=== PATIENT | female | born 1965 | race Caucasian/White ===

== ENCOUNTER 2017-04-12 11:17 | Emergency (ER) | payer OTHER ==
[2017-04-12] MEDS ORDERED: MOTRIN 600 MG PO ONE (11:46)
[2017-04-12] MEDS ORDERED: MOTRIN 600 MG ONE (11:53)
--- NOTE | 2017-04-12 11:57 | ERPHSYRPT ---
- History of Present Illness Time Seen by Provider: 04/12/17 11:54 Source: patient Exam Limitations: no limitations Physician History: 52 y/o female comes to the ER with complaints of left middle finger pain after jamming the finger last night. Pt describes the pain as sharp, intermittent, 0/ 10 at rest and 6/10 with movement and pt has not taken any pain medss. Occurred: yesterday Method of Injury: direct blow Quality: intermittent Severity of Pain-Max: moderate Severity of Pain-Current: none Extremities Pain Location: 3rd finger: left Modifying Factors: Improves With: movement Associated Symptoms: none Allergies/Adverse Reactions: Penicillins Allergy (Verified 04/12/17 12:05) Home Medications: Alprazolam 0.25 mg [xanAX 0.25 MG] 0.25 mg PO BIDPRN PRN 04/12/17 [History ] Metoprolol Succinate 50 mg [Toprol Xl 50 MG] 50 mg PO DAILY 04/12/17 [ History] - Review of Systems Constitutional: No Fever, No Chills Eyes: No Symptoms Ears, Nose, & Throat: No Symptoms Respiratory: No Cough, No Dyspnea Cardiac: No Chest Pain, No Edema, No Syncope Abdominal/Gastrointestinal: No Abdominal Pain, No Nausea, No Vomiting, No Diarrhea Genitourinary Symptoms: No Dysuria Musculoskeletal: Joint Redness, Joint Pain, No Back Pain, No Neck Pain Skin: No Rash Neurological: No Dizziness, No Focal Weakness, No Sensory Changes Psychological: No Symptoms Endocrine: No Symptoms All Other Systems: Reviewed and Negative - Nursing Vital Signs Nursing Vital Signs: Initial Vital Signs Pulse Rate 100 H 04/12/17 11:53 Respiratory Rate 16 04/12/17 11:53 Blood Pressure 130/72 04/12/17 11:53 O2 Sat by Pulse Oximetry 98 04/12/17 11:53 Pain Scale Pain Intensity 1 - Physical Exam General Appearance: alert Eyes, Ears, Nose, Throat Exam: moist mucous membranes Neck Exam: non-tender, supple Cardiovascular/Respiratory Exam: chest non-tender, normal breath sounds, regular rate/rhythm, no respiratory distress Abdominal Exam: non-tender, No guarding Back Exam: normal inspection, No vertebral tenderness Wrist Exam: normal inspection Hand Exam: bone tenderness, limited ROM Neuro/Tendon Exam: normal sensation, normal motor functions Mental Status Exam: alert, oriented x 3, cooperative Skin Exam: normal color, warm, dry SpO2: 98 Oxygen Delivery: Room Air - Course Nursing assessment & vital signs reviewed: Yes Ordered Tests: Medication Summary Discontinued Medications Generic Name Dose Route Start Last Admin Trade Name Coltenq PRN Reason Stop Dose Admin Ibuprofen 600 mg 04/12/17 11:46 04/12/17 11:54 Motrin 600 Mg PO 04/12/17 11:47 600 mg STAT ONE Administration Ibuprofen Confirm 04/12/17 11:53 Motrin 600 Mg Administered 04/12/17 11:54 Dose 600 mg .[employer]TE .[employer] - Progress Progress: unchanged Progress Note: 04/12/17 12:21 The finger x ray shows a nondisplaced fracture of the 3rd phalanx. Pt will have a daniella tape placed and will be given a script for motrin. Pt will F/U with orthopedics. - Departure Time of Disposition: 12:22 Departure Disposition: Home Clinical Impression: Finger fracture Qualifiers: Encounter type: initial encounter Finger: ring finger Fracture type: closed Phalanx: proximal Fracture alignment: nondisplaced Laterality: left Qualified Code(s): S62.645A - Nondisplaced fracture of proximal phalanx of left ring finger, initial encounter for closed fracture Condition: Stable Critical Care Time: No Referrals: RICK LOVE [ACTIVE STAFF] - Instructions: Finger Fracture Additional Instructions: Follow up with Dr Love in the next few days. Prescriptions: Ibuprofen 200 mg [Motrin 200 mg] 600 mg PO QID PRN #20 tablet PRN Reason: Pain
--- NOTE | 2017-04-12 12:09 | XRAY ---
Indication: Pain and swelling following injury. Comparison: None 3 views of the left fourth finger demonstrates ring at the base limiting exam. Query nondisplaced corner fracture involving the head of the proximal phalanx, radial aspect with soft tissue swelling. No other bony, articular, or soft tissue abnormalities.
[2017-04-12 12:41] VITALS: BP 118/60; PULSE 73
[2017-04-13 06:19] VITALS: O2SAT 98
== END 2017-04-12 12:41 | disposition home or self-care (01) ==
LOC: ED 11:17
DX: S62.645A Nondisplaced fracture of proximal phalanx of left ring finger, initial encounter for closed fracture (principal); W22.8XXA Striking against or struck by other objects, initial encounter
CPT/HCPCS: 73140; 82962; 99283; 99284; A9270-GY